=== PATIENT | female | born 2000 | race Caucasian/White ===

== ENCOUNTER 2018-10-07 23:09 | Observation (INO) | payer BC ==
[2018-10-07] MEDS ORDERED: NS 1,000 ML IV ONE (23:27)
--- NOTE | 2018-10-07 23:39 | EDPHY ---
H & P Stated Complaint: Abdominal Pain & Diarrhea Time Seen by Provider: 10/07/18 23:37 HPI/ROS: HPI CHIEF COMPLAINT: Abdominal pain, diarrhea HISTORY OF PRESENT ILLNESS: 18-year-old female, otherwise healthy presents emergency room with abdominal pain. Patient reports to me since Wednesday she has had rather significant abdominal pain progressively getting worse. It is mainly in her right side of her abdomen right lower quadrant right mid abdomen. Shows reports diarrhea watery brown however notice that was slightly pink tonight. This concerned her. Denies fever, denies chest pain, denies shortness of breath, denies vomiting. Never had anything like this before. Past Medical History: Denies significant medical history except for anxiety and depression Past Surgical History: Appendectomy Social History: Denies drugs use alcohol or tobacco. Family History: Noncontributory ROS REVIEW OF SYSTEMS: 10 Systems were reviewed and negative with the exception of the elements mentioned in the history of present illness. Exam Constitutional triage nursing summary reviewed, vital signs reviewed, awake/ alert. Eyes normal conjunctivae and sclera, EOMI, PERRLA. HENT normal inspection, atraumatic, moist mucus membranes, no epistaxis, neck supple/ no meningismus, no raccoon eyes. Respiratory clear to auscultation bilaterally, normal breath sounds, no respiratory distress, no wheezing. Cardiovascular rate normal, regular rhythm, no murmur, no edema, distal pulses normal. Gastrointestinal mild tender palpation right-sided abdomen right lower quadrant right mid abdomen. no rebound, no guarding, normal bowel sounds, no distension, no pulsatile mass. Genitourinary no CVA tenderness. Musculoskeletal no midline vertebral tenderness, full range of motion, no calf swelling, no tenderness of extremities, no meningismus, good pulses, neurovascularly intact. Skin pink, warm, & dry, no rash, skin atraumatic. Neurologic awake, alert and oriented x 3, AAOx3, moves all 4 extremities equally, motor intact, sensory intact, CN II-XII intact, normal cerebellar, normal vision, normal speech. Psychiatric normal mood/affect. Heme/Lymph/Immune no lymphadenopathy. Differential Diagnosis: Differential diagnosis includes but is not limited to and in no particular order: Bowel obstruction, colitis, GI illness, gallbladder disease, diverticulitis, colitis, enteritis, perforated viscus, gastritis, GERD, esophagitis, urinary tract infection, pyelonephritis, kidney stones Medical Decision Making: Plan for this patient IV establishment IV fluid bolus , CT scan abdomen pelvis with IV contrast to help delineate right-sided abdominal pain, basic blood work, GI studies. Gentle IV fluids and re-evaluate. Re-evaluation: CT scan abdomen pelvis with IV contrast faxed me by direct Radiology time of fax 1:05 a.m. This shows diffuse hypodense colonic wall thickening and the colon is diffusely fluid-filled little form stool findings are consistent with colitis. Senior colitis. Stool studies have been ordered. The patient be admitted the hospital overnight for IV hydration, IV antibiotic Cipro Flagyl for pain colitis. Patient prefer this given abdominal pain, diarrhea. Patient is nontoxic appearing here Vital signs stable. Admit to the hospitalist service for pain colitis. 0314: Updated patient on CT results of pain colitis. Consult the hospitalist Dr. Pedraza, who agrees to admit the patient for colitis abdominal pain dehydration. Patient agrees for admission. Source: Patient, Family - Personal History LMP (Females 10-55): 15-21 Days Ago Current Tetanus/Diphtheria Vaccine: Yes Current Tetanus Diphtheria and Acellular Pertussis (TDAP): Yes - Medical/Surgical History Hx Asthma: No Hx Chronic Respiratory Disease: No Hx Diabetes: No Hx Cardiac Disease: No Hx Renal Disease: No Hx Cirrhosis: No Hx Alcoholism: No Hx HIV/AIDS: No Hx Splenectomy or Spleen Trauma: No Other PMH: Depression, anxiety, Appy - Social History Smoking Status: Never smoked Constitutional: Initial Vital Signs Temperature (C) 37.1 C 10/07/18 23:14 Heart Rate 116 H 10/07/18 23:14 Respiratory Rate 16 10/07/18 23:14 Blood Pressure 113/62 10/07/18 23:14 O2 Sat (%) 95 10/07/18 23:14 O2 Delivery Mode Room Air Allergies/Adverse Reactions: No Known Allergies Allergy (Unverified 10/07/18 23:12) Home Medications: Medication Instructions Recorded Sertraline HCl [Zoloft 25mg (*)] 25 mg PO HS 10/07/18 buPROPion XL [Wellbutrin Xl] 150 mg PO HS 10/07/18 Control 1 ea PO HS 10/08/18 Multivitamins [Multivitamin (*)] 1 each PO DAILY 10/08/18 Medical Decision Making - Data Points Laboratory Results: Laboratory Results 10/07/18 23:27 10/07/18 23:27 Medications Given: Hydrocodone Bitart/Acetaminophen ([place] 5/325) 1 - 2 tab PO Q4HRS PRN PRN Reason: Pain, Moderate Able to Take PO Stop: 10/18/18 03:07 Last Admin: 10/09/18 01:00 Dose: 1 tab Bupropion HCl (Wellbutrin Xl) 150 mg PO HS AV Stop: 04/06/19 20:59 Last Admin: 10/08/18 20:13 Dose: 150 mg Ciprofloxacin/Dextrose (Cipro 200 Mg (Premix)) 100 mls @ 100 mls/hr IV Q12HRS AV PRN Reason: Protocol Stop: 11/07/18 11:29 Last Admin: 10/08/18 20:19 Dose: 100 mls Sodium Chloride (Ns) 1,000 mls @ 100 mls/hr IV CONT AV Stop: 04/06/19 03:14 Last Admin: 10/08/18 16:34 Dose: 1,000 mls Metronidazole/Sodium Chloride (Flagyl 500 Mg (Premix)) 100 mls @ 100 mls/hr IV Q8H AV PRN Reason: Protocol Stop: 11/07/18 16:59 Last Admin: 10/09/18 01:00 Dose: 100 mls Ondansetron HCl (Zofran Odt) 4 mg PO Q4HRS PRN PRN Reason: Nausea/Vomiting, Use 1st Stop: 04/06/19 03:07 Last Admin: 10/08/18 22:15 Dose: 4 mg Sertraline HCl (Zoloft) 25 mg PO HS [facility] Stop: 04/06/19 20:59 Last Admin: 10/08/18 20:13 Dose: 25 mg Discontinued Medications Hydromorphone HCl (Dilaudid) 0.5 mg IVP EDNOW ONE Stop: 10/08/18 01:58 Last Admin: 10/08/18 02:03 Dose: 0.5 mg Sodium Chloride (Ns) 1,000 mls @ 0 mls/hr IV EDNOW ONE; Wide Open PRN Reason: Protocol Stop: 10/07/18 23:28 Last Admin: 10/07/18 23:33 Dose: 1,000 mls Sodium Chloride (Ns) 1,000 mls @ 0 mls/hr IV ONCE ONE PRN Reason: Wide Open Stop: 10/08/18 01:24 Last Admin: 10/08/18 01:25 Dose: 1,000 mls Ciprofloxacin/Dextrose (Cipro 200 Mg (Premix)) 100 mls @ 100 mls/hr IV EDNOW ONE PRN Reason: Protocol Stop: 10/08/18 02:36 Last Admin: 10/08/18 02:39 Dose: 100 mls Metronidazole/Sodium Chloride (Flagyl 500 Mg (Premix)) 100 mls @ 100 mls/hr IV EDNOW ONE PRN Reason: Protocol Stop: 10/08/18 02:36 Last Admin: 10/08/18 01:47 Dose: 100 mls Metronidazole/Sodium Chloride (Flagyl 500 Mg (Premix)) 100 mls @ 100 mls/hr IV Q8HRS AV PRN Reason: Protocol Stop: 11/07/18 08:59 Last Admin: 10/08/18 09:32 Dose: 100 mls Departure - Departure Disposition: [facility] Acute Clinical Impression: Colitis Condition: Fair
[2018-10-07 23:48] LABS: PLATELET COUNT 254 10^3/uL (150-400)
[2018-10-08] MEDS ORDERED: IOHEXOL 300 mgI/ML (OMNIPAQUE) 150 ML BTL IV ONE (00:30)
[2018-10-08] MEDS ORDERED: NS 1,000 ML IV ONE (01:23)
[2018-10-08] MEDS ORDERED: CIPROFLOXACIN 200 MG/DEXTROSE 100 ML IV ONE (01:37)
[2018-10-08] MEDS ORDERED: HYDROmorphONE/DILAUDID 2 MG/ML INJ IVP ONE (01:57)
[2018-10-08] MEDS ORDERED: ONDANSETRON 4 MG/2 ML VIAL ONE (02:09)
[2018-10-08] MEDS ORDERED: LIDOCAINE 2% VISCOUS 15 ML UDCUP PO ONE (02:19)
[2018-10-08] MEDS ORDERED: MAG HYDROX/AL HYDROX/SIMETH 30 ML UDCUP PO ONE (02:19)
[2018-10-08] MEDS ORDERED: ACETAMINOPHEN 325 MG TAB PO PRN (03:08)
[2018-10-08] MEDS ORDERED: ONDANSETRON 4 MG/2 ML VIAL IVP PRN (03:08)
[2018-10-08] MEDS ORDERED: LORazepam 0.5 MG TAB PO PRN (03:08)
[2018-10-08] MEDS ORDERED: ALBUTEROL 3 ML DEYVIAL IH PRN (03:52)
[2018-10-08] MEDS: NS 1,000 ML IV SCH ×2 (05:14→16:34)
[2018-10-08] MEDS: HYDROCODONE/APAP 5/325 TAB PO PRN ×4 (05:21→20:13)
--- NOTE | 2018-10-08 05:48 | GHP ---
HISTORY AND PHYSICAL DATE OF ADMISSION: 10/08/2018 Patient provides history, fair historian due to a little bit of sedation from pain medications. Her roommates are at bedside and supplement details. CHIEF COMPLAINT: Abdominal pain, diarrhea. HISTORY OF PRESENT ILLNESS: This is a very pleasant 18-year-old female with a past medical history significant for anxiety, depression, and exercise-induced asthma who presents to the emergency department today with complaints of several days of worsening abdominal pain ongoing for the last several days. Patient reports that she has had intermittent waves of sharp cramping pain. Pain originates in the right lower quadrant and moves to her upper abdomen down the left side. She does report multiple episodes of diarrhea. The last few episodes she had at home were reddish in color, but no finn blood. The patient reporting some chills. No known fevers. She denies any shortness of breath. No vomiting. No known sick contacts. Patient denies any travel outside of the country. She did travel from [place] by car after a recent trip home in [place]. Review of systems: 10 systems reviewed and otherwise negative except as noted above. Allergies: no known drug allergies Medication: OCP, albuterol, "anxiety and depression meds" Past medical history: Anxiety, depression, exercise-induced asthma Past surgical history: Appendectomy Family history: Negative for any chronic GI issues. Social history: Patient is a student from [place]. She reports rare alcohol. Denies any tobacco or illicit drugs. No marijuana reported. Physical exam: Vital signs upon arrival to ED: BP 113/62, heart rate 116, respiratory rate 16 , O2 sat 95% on room air, temperature 37.1 C. Vital signs available time of interview: Blood pressure 102/61, heart rate 91, respiratory rate 18, O2 sat 93% on room air, temperature 37.0 C. General: No acute distress. Pleasant young adult female is lying quietly in bed. She is a little bit disoriented due to sedation. Her roommates are at bedside. Head: Normocephalic atraumatic. ENT: Mucous membranes slightly tacky. Dentition intact. No pharyngeal erythema or exudates. No nasal discharge. Eyes: Pupils equal round with decreased reactivity to light bilaterally but symmetric. No scleral icterus or conjunctival injection CV: Tachycardic with regular rhythm. No murmurs, rubs or gallops appreciated. Respiratory: Lungs are clear to auscultation bilaterally no wheezes rales or rhonchi. Some decreased inspiratory effort. Abdomen: Hypoactive bowel sounds. Soft. Some tenderness to palpation on the right lateral and mid upper abdomen. No rebound or guarding. Musculoskeletal: Patient moves all extremities. Sits up independently. Grossly normal. Neuro: Grossly nonfocal moves all extremities. Psych: Patient slightly sedated and disoriented after Dilaudid. Laboratory studies: WBC 8.62, H&H 15.545.0, MCV 86.0, platelet count 254, neutrophil % 75.8 no bands. Sodium 139 potassium 4.1 chloride 107 CO2 20 or anion gap 8 BUN is 7 creatinine 0.7 GFR greater than 60. Glucose 83. Calcium 9.1. Total bili 0.9. Has a ALT 18 AST 20 alk-phos 67 total protein 6.8 albumin 4.0. Lipase is 74. Serum beta HCG qualitative negative. UA-specific gravity greater than 1.035. PH of 5.01+ ketones otherwise negative. CT abdomen pelvis with contrast. Preliminary report image reviewed. Noted for cullen colitis. Assessment and plan: Pleasant 18-year-old female with history of anxiety, depression, asthma presents emergency department with complaints of several days of abdominal pain diarrhea. # cullen colitis - suspect infectious etiology. Patient has been started on Cipro and Flagyl. Advance diet as tolerated. GI PCR has been ordered. Patient has not had any additional bowel movements since arrival to the ED. Supportive care with p.r.n. Pain management. Patient is slightly disoriented from IV Dilaudid. Will avoid IV narcotics at this time. Tylenol and oral pain medications. # abdominal pain - as noted above. # dehydration - continue with IV fluids. Advance diet as tolerated. # anxiety, depression - For admit p.r.n.. FEN - a fluids. Electrolyte monitoring. Advance diet as tolerated. PPX- SCDs. Overall low risk for DVT. COR - FULL DISPO - patient admitted observation status on the [facility] floor for continued IV fluids antibiotics and pain control. /[id number]/MODL MTDD
[2018-10-08] MEDS: CIPROFLOXACIN 200 MG/DEXTROSE 100 ML IV SCH ×2 (11:45→20:19)
--- NOTE | 2018-10-08 13:51 | ASMTCMCOM ---
CM Note CM Note Notes: Pt is a 18 y/o female who came to the ED with abdominal pain that she has experienced since last Wednesday which has been becoming progressively worse. She was diagnosed with colitis. No PT/OT evals have been ordered. Pt lived independently prior to her admission and no CM needs have been identified; CM will follow for changes. D/C Plan: Anticipate independent. Date Signed: 10/08/2018 01:50 PM Electronically Signed By:Socorro Og
[2018-10-08] MEDS: SERTRALINE HCL 25 MG TAB PO SCH (20:13)
[2018-10-08] MEDS: buPROPion XL 150 MG TAB PO SCH (20:13)
--- NOTE | 2018-10-08 21:19 | HOSPPROG ---
Hospitalist Progress Note Assessment/Plan: 18 yo F with hx of anxiety/depression pw abdominal pain and imaging c/w colitis # colitis: presumably infectious, started on cipro/flagyl for now, will monitor for improvement and GI pathogen panel is pending, if not improving as expected will discuss with GI # hypovolemia: IVF, 2/2 above # anxiety/depression # observation status Objective: Vital Signs Temp Pulse Resp BP Pulse Ox 36.6 C 92 16 90/55 L 96 10/08/18 19:21 10/08/18 19:21 10/08/18 19:21 10/08/18 19:21 10/08/18 19:21 Microbiology 10/08/18 09:29 Gastrointestinal Tract Panel (PCR) - Final Stool Campylobacter Species E.coli Enteroaggregative(Eaec) E.coli Enteropathogenic(Epec) Laboratory Results 10/08/18 07:55 10/07/18 10/08/18 10/09/18 05:59 05:59 05:59 Intake Total 1650 1999 Balance 1650 1999 ICD10 Worksheet Patient Problems: Problems Problem Status Onset Colitis Acute
[2018-10-08] MEDS: ONDANSETRON DISINTEGRATING 4 MG TAB PO PRN (22:15)
[2018-10-09] MEDS: HYDROCODONE/APAP 5/325 TAB PO PRN (01:00)
[2018-10-09] MEDS: NS 1,000 ML IV SCH (05:42)
[2018-10-09] MEDS: CIPROFLOXACIN 200 MG/DEXTROSE 100 ML IV SCH (08:23)
[2018-10-09] MEDS: MULTIVITAMINS 1 EACH TAB PO SCH (08:30)
[2018-10-09] MEDS: ONDANSETRON DISINTEGRATING 4 MG TAB PO PRN (08:45)
--- NOTE | 2018-10-09 12:26 | HOSPPROG ---
Hospitalist Progress Note Assessment/Plan: 18 yo F with hx of anxiety/depression pw abdominal pain and imaging c/w colitis and GI panel showing EAEC/EPEC and campylobacter # infectious colitis: with pathogens responsible found to be EAEC, EPEC and campylobacter species. Patient initially started on cipro/flagyl but will dc now that speciation available as abx not indicated in this setting. Will continue to treat conservatively, her diarrhea has resolved however she is still having difficulty tolerating PO and is very wiped out. Likely will be ready for dc in am. # hypovolemia: IVF, 2/2 above # anxiety/depression: chronic issues, no acute issues with this at the time being, continue her op mgmt # observation status: likely can dc in am Patient new to my care. Old records reviewed and summarized as above. Subjective: no acute overnight events, patient remains very fatigued and not able to eat very much but no diarrhea since yesterday Objective: Vital Signs Temp Pulse Resp BP Pulse Ox 37.1 C 108 H 14 94/63 L 95 10/09/18 11:40 10/09/18 11:40 10/09/18 11:40 10/09/18 11:40 10/09/18 11:40 Microbiology 10/08/18 09:29 Gastrointestinal Tract Panel (PCR) - Final Stool Campylobacter Species E.coli Enteroaggregative(Eaec) E.coli Enteropathogenic(Epec) Laboratory Results 10/08/18 07:55 10/08/18 10/09/18 10/10/18 05:59 05:59 05:59 Intake Total 1650 3568 Balance 1650 3568 awake alert somnolent anicteric op clear rrr no mrg cta b soft nt nd no cce warm dry well perfused oriented appropriate - Time Spent With Patient Time Spent with Patient: greater than 35 minutes Time Spent with Patient: Greater than 35 minutes spent on this patients care, greater than 50% of time spent counseling, educating, and coordinating care regarding the above mentioned plan. ICD10 Worksheet Patient Problems: Problems Problem Status Onset Colitis Acute
[2018-10-09] MEDS: SERTRALINE HCL 25 MG TAB PO SCH (21:09)
[2018-10-09] MEDS: buPROPion XL 150 MG TAB PO SCH (21:09)
[2018-10-10] MEDS: ONDANSETRON DISINTEGRATING 4 MG TAB PO PRN (09:12)
--- NOTE | 2018-10-10 10:19 | HOSPPROG ---
Hospitalist Progress Note Assessment/Plan: 18 yo F with hx of anxiety/depression pw abdominal pain and imaging c/w colitis and GI panel showing EAEC/EPEC and Campylobacter. First encounter, chart reviewed. # infectious colitis: with pathogens responsible found to be EAEC, EPEC and Campylobacter species. -started on cipro/flagyl but will dc now that speciation available as abx not indicated in this setting. -no further diarrhea, eating and drinking well # hypovolemia: IVF, 2/2 above # anxiety/depression -cont OP care #plan: dc home Subjective: Yessenia is feeling well today, no diarrhea. Objective: Vital Signs Temp Pulse Resp BP Pulse Ox 37.0 C 83 16 96/59 L 94 10/10/18 07:39 10/10/18 07:39 10/10/18 07:39 10/10/18 07:39 10/10/18 07:39 Laboratory Results 10/08/18 07:55 10/09/18 10/10/18 10/11/18 05:59 05:59 05:59 Intake Total 3568 1700 Balance 3568 1700 - Physical Exam Constitutional: no apparent distress, appears nourished, other (thin) Eyes: PERRL Ears, Nose, Mouth, Throat: hearing normal Cardiovascular: regular rate and rhythym Respiratory: no respiratory distress Gastrointestinal: normoactive bowel sounds, soft, non-tender abdomen Skin: warm, normal color Neurologic: AAOx3, sensation intact bilaterally Psychiatric: interacting appropriately ICD10 Worksheet Patient Problems: Problems Problem Status Onset Colitis Acute
--- NOTE | 2018-10-10 11:26 | ASMTLACE ---
DARLE[facility] Length of stay for Answers: 2 days current admission Acuity / Level of Answers: No Care: Did the patient have an inpatient admission? # of Emergency department Answers: 1-2 visits in the last 6 months Social determinants Answers: Mental health diagnosis (anxiety, depression, pers onality disorders, etc.) Score: 6 Date Signed: 10/10/2018 11:25 AM Electronically Signed By:CHILANGO Taylor
--- NOTE | 2018-10-10 12:15 | GDS ---
[f rep st] DISCHARGE SUMMARY DISCHARGE DIAGNOSIS: 1. Infectious colitis with pathogens responsible found to be enteroaggregative Escherichia coli, ent eropathogenic Escherichia coli, and campylobacter species. 2. Hypokalemia. 3. Anxiety, depression. HISTORY OF PRESENT ILLNESS: Briefly, this patient is a 18-year-old female with a history of anxiety and depression, who presented with abdominal pain. Her imaging was consistent with colitis, and her GI panel showed EAEC/EPEC and campylobacter. She was initially treated antibiotics but felt poorly w ith these. Her symptoms have since resolved. She is eating and drinking well. She will be discharg ed home. She will get handouts in regard to campylobacter. HOSPITAL COURSE BY PROBLEM: 1. Infectious colitis. She is eating and drinking well. She has had no further diarrhea. 2. Hypovolemia, resolved. She is eating and drinking. 3. Anxiety, depression, stable. DISCHARGE CONDITION: Stable. Blood pressure is 96/59, heart rate of 83, respiratory rate of 16, O2 sats on room air 94%, temperature is 37 degrees Celsius. MEDICATIONS AT DISCHARGE: Please see the EMR. DISCHARGE INSTRUCTIONS: 1. Handout in regards of how to avoid campylobacter has been given to her. 2. Good handwashing. 3. Okay to return to school tomorrow. She is feeling well. /[id number]/MODL
[2018-10-10 12:29] VITALS: BP 99/66
[2018-10-10] MEDS: MULTIVITAMINS 1 EACH TAB PO SCH (12:46)
== END 2018-10-10 14:06 | disposition home or self-care (01) ==
LOC: F3N 10-08 04:35
PROVIDERS: ADMIT Family Medicine; ATTEND Internal Medicine
DX: A04.5 Campylobacter enteritis (principal); A04.4 Other intestinal Escherichia coli infections; A04.0 Enteropathogenic Escherichia coli infection; F41.8 Other specified anxiety disorders; E87.6 Hypokalemia; E86.0 Dehydration
CPT/HCPCS: 74177; 96361; 96365; G0378; J1170; J2405; Q9967